=== PATIENT | female | born 2000 | race Caucasian/White ===

== ENCOUNTER 2023-08-22 12:00 | Outpatient (CLI) | payer MEDICAID, SELFPAY | END 2023-08-22 12:01 | disposition home or self-care (01) | LOC: SPT 12:00 | PROVIDERS: Family Provider Family Medicine; PCP Nurse Practitioner; Visit Provider Podiatrist Foot & Ankle Surgery | DX: Z46.89 Encounter for fitting and adjustment of other specified devices (principal); S99.912D Unspecified injury of left ankle, subsequent encounter; X58.XXXD Exposure to other specified factors, subsequent encounter; S93.409D Sprain of unspecified ligament of unspecified ankle, subsequent encounter; M76.72 Peroneal tendinitis, left leg | CPT/HCPCS: 97760; 99203; L1902 ==

== ENCOUNTER → 2023-09-09 12:57 | Outpatient (BNVA) | payer MEDICAID, SELFPAY | PROVIDERS: Family Provider Family Medicine; PCP Nurse Practitioner; Visit Provider Podiatrist Foot & Ankle Surgery | DX: M76.72 Peroneal tendinitis, left leg (principal); S93.402D Sprain of unspecified ligament of left ankle, subsequent encounter; X58.XXXD Exposure to other specified factors, subsequent encounter | CPT/HCPCS: 99213 ==

== ENCOUNTER 2023-10-04 07:16 | Outpatient (CLI) | payer MEDICAID, SELFPAY ==
--- NOTE | 2023-10-04 07:15 | MR_ITS ---
WS: [id number] EXAMINATION: MR ankle LT wo con* [id number] ORDER DATE: 10/04/2023 7:27 AM COMPARISON: None. HISTORY: surgical planning, to rule out a tear to peroneal and atfl CONTRAST: None. TECHNIQUE: Axial proton density fat sat, axial T1, sagittal proton density, sagittal STIR, coronal T2 fat sat, and coronal T1 sequences performed. After contrast, axial T1 fat sat, coronal T1 fat sat, and sagittal T1 fat sat were performed. FINDINGS: Normal ankle mortise. Normal medial and lateral malleolus. Normal plantar aponeurosis. Talar dome is normal. Normal calcaneus. Normal talar calcaneal and talonavicular articulation. Normal cuboid. Base of the fifth metatarsal appears normal. Fluid compatible with tenosynovitis along the common peroneal tendon sheath and extending along the p eroneal longus and brevis. Longitudinal split tear involving the peroneal longus at the level of the peroneal tubercle. Distal tendon appears intact at the insertion In addition, partial high-grade tear involving the peroneal brevis with irregularity with small remna nt extending distally to the insertion. Partial high-grade tear at the level of the peroneal tubercle . This is best evaluated on the coronal imaging. Deltoid ligament is intact. ATF is poorly visualized and likely torn. Small amount of fluid in the an terolateral gutter. Posterior talofibular ligament appears intact with a small amount of of fluid and edema along the posterior recess. Calcaneofibular ligament appears intact. Tibiofibular ligaments ap pear intact. Tenosynovitis involving the tibialis posterior and flexor digitorum longus. Extensor compartment tend ons appear intact. Visualized proximal metatarsals appear normal. Normal cuneiforms. MR/MR ankle LT wo con* [id number] IMPRESSION: 1. High-grade tear involving the peroneal brevis at the level of the peroneal tubercle with a tiny amount of residual tendon or tendon sheath extending dista lly to the insertion. 2. Additional longitudinal split tear of the peroneal longus at the level of p eroneal tubercle. This appears intact distally at the insertion. 3. Tenosynovitis along the common peroneal tendon sheath. 4. ATFL is poorly visualized and likely torn. Posterior talofibular ligament a ppears intact. 5. Distal Achilles appears intact. 6. No other acute findings.
== END 2023-10-04 07:17 | disposition home or self-care (01) ==
LOC: RAD 07:16
PROVIDERS: Family Provider Family Medicine; PCP Nurse Practitioner; Visit Provider Podiatrist Foot & Ankle Surgery
DX: M76.72 Peroneal tendinitis, left leg (principal); S93.409A Sprain of unspecified ligament of unspecified ankle, initial encounter; S99.912A Unspecified injury of left ankle, initial encounter; X58.XXXA Exposure to other specified factors, initial encounter; M65.9 Synovitis and tenosynovitis, unspecified
CPT/HCPCS: 73721

== ENCOUNTER → 2023-10-09 12:46 | Outpatient (BNVA) | payer MEDICAID, SELFPAY | PROVIDERS: Family Provider Family Medicine; PCP Nurse Practitioner; Visit Provider Podiatrist Foot & Ankle Surgery | DX: S93.402A Sprain of unspecified ligament of left ankle, initial encounter (principal); X58.XXXA Exposure to other specified factors, initial encounter | CPT/HCPCS: 99213 ==